=== PATIENT | male | born 2000 | race Two or more races ===

== ENCOUNTER 2021-06-26 06:05 | Inpatient (IN) ==
[2021-06-26] MEDS ORDERED: SODIUM CHLORIDE 0.9% 1000ML 1,000 ML IV ONE ×2 (06:52→07:50)
[2021-06-26] MEDS ORDERED: ONDANSETRON INJ 2 MG/ML 2 ML VIAL IV STA (06:52)
[2021-06-26] MEDS ORDERED: MoRPHine SULFATE 4 MG/ML 1 ML CARP\\VIAL IV STA (06:52)
--- NOTE | 2021-06-26 06:58 | Emergency Department Note ---
Impression & Plan Pancreatitis ED Provider Note Name: KENTON CABALLERO Age: 21 Sex: M Arrives Via: Walk-In Informant: Patient ED Provider: Salomón Kumar MD Chief Complaint: abdominal pain Impression: Pancreatitis Medical Decision Makin yr old male who is a pleasant healthy [employer] Student without PMH arrives for evaluation of epigastric pain starting overnight after eating chicken tacos last night. No ETOH, trauma, drugs, nor nsaid use. Labs with Lipase 12k and mild renal insufficiency. Given 2 L IV fluids, narcotics for pain control and CT obtained after discussing risks contrast/radiation. This shows pancreatitis with trace fluid. No evidence active hemorrhage. He is hemodynamically stable, not septic appearing and is now comfortable post IV narcotics. Hospitalist consulted for further management. I reviewed with patient's father at bedside over the phone with patient. Prior Medical Record and Triage/Nursing Notes reviewed by Me Differentials:Appendicitis, infections,UTI, obstruction, mesenteric ischemia, aortic pathology, inflammatory bowel disease, renal colic, PUD, pancreatitis, biliary pathology, hernia, volvulus, constipation, as well as other pathologies. Vital Signs: reviewed and remarkable for no significant abnormalities Interventions: saline lock, nss bolus 2 L IV, morphine 4mg iv, zofran 4mg iv, dilaudid 1mg iv Labs:Reviewed and remarkable for elevated cr, ++lipase Imaging:See Below Consults:Dr Clemente GURROLA Hospitalist Plan: Disposition:Hospitalization. Condition: Good History of Present Illness:21 yr old male arrives for evaluation of abdominal pain. Patient notes that he awoke in the middle of the night with abdominal pain. Upper umbilical area. Sharp & cramping in nature. Worse with movement, better with saying still. No associated symptoms. No radiation of pain. No medications taken for this. He did eat chicken in a taco last night that none of his friends had. No other sick contacts. No trauma, injuries, falls. No supplement use. No history of similar. No abdominal surgeries. Denies nausea, vomiting, chest pain, syncope, back pain, urinary/bowel symptoms, leg swelling, rashes, headache, sore throat, nor other symptoms. ROS: See above HPI for pertinent positives & negatives. A total of 10 systems reviewed and were otherwise negative. Past Medical History:None Past Surgical History:None Family History:Healthy Social History:[employer] Student from [place], no tobacco use Home Medications:None Allergies:NKDA Vitals:Blood Pressure: 139/61, Pulse 79, RR 22, T 3.4C, O2 98% on RA Physical Exam: GENERAL: Patient is uncomfortable appearing and in moderate distress. EYES: No scleral icterus, unremarkable pupils. ENT: Mucous membranes moist, no nasal congestion. NECK: No masses appreciated, nomeningismus, trachea is midline. RESPIRATORY: No dyspnea. Clear to auscultation and equal bilaterally. No wheeze, no rhonchi. CARDIOVASCULAR: Regular rate and rhythm.No murmurs, rubs, gallops appreciated. GASTROINTESTINAL: TTP over upper umbilical/epigastric. Abdomen soft.Bowel sounds positive.No masses appreciated. BACK: No midline tenderness, no CVA tenderness EXTREMITIES: Normal motion all extremities, no cyanosis, no edema. NEUROLOGIC: Alert and oriented, no acute motor or sensory deficits, no focal weakness, cranial nerves grossly intact. SKIN: No rash, no jaundice, no diaphoresis. PSYCH: Appropriate GCS: 15 ED Course: Times/Reassessments: Stable, much improved and breathing comfortably Salomón Kumar MD Past Med/Surg History Social History Smoking Status: Never smoker Hx Alcohol Use: Yes Alcohol type: beer Hx Substance Use: No Preferred Language: Frisian Communication Ability: Effective Director Multimedia Required: No Beliefs That Will Affect Care: None Current Living Situation: Other Current Living Situation Comment: FRIENDS Other Information That Helps Us Care for You: No Feels Safe at Home: Yes Safety Concerns: Feels Safe At This Time Assistive Devices: Glasses Allergies Allergies Allergy/AdvReac Type Severity Reaction Status Date / Time No Known Allergies Allergy Unverified 06/26/21 08:07 Home Meds Home Medications Medication Instructions Recorded Confirmed levothyroxine 75 mcg capsule 75 mcg PO DAILY 06/26/21 06/26/21 Results & Data (ED) Vital Signs Vital Signs - 24 hr 06/26/21 06:10 06/26/21 06:23 06/26/21 08:35 Temperature 36.4 C L Temperature Source Temporal Artery Scan Pulse Rate 79 Pulse Rate [Apical] 60 Respiratory Rate 24 22 18 Respiratory Effort / Characteristics Spontaneous Non-Labored Respiratory Depth Normal Blood Pressure 122/77 Blood Pressure [Right Arm] 139/61 141/83 H Blood Pressure Mean 92 Blood Pressure Mean [Right Arm] 87 102 Blood Pressure Position Sitting Blood Pressure Position [Right Arm] Sitting Pulse Oximetry 100 98 98 Oxygen Delivery Method Room Air Room Air Room Air Sepsis Recent Fever Within 48 Hours No Sepsis New/Unexplained Change in Mental Status N/A Sepsis Action Taken by Nursing No Action Required Laboratory Data Result diagrams: 06/26/21 07:00 06/26/21 07:00 Lab Results 06/26/21 06/26/21 06/26/21 Range/Units 07:00 07:00 07:10 WBC 12.35 H (4.8-10.8) K/uL RBC 5.48 (4.7-6.1) M/uL Hgb 16.5 (14.0-18.0) g/dL Hct 45.4 (42-52) % MCV 82.8 (80-100) fL MCH 30.1 (25-34) pg MCHC 36.3 H (32-36) g/dL RDW Std Deviation 37.0 (36.4-46.3) fL RDW Coeff of Kurt 12.2 (11.5-14.5) % Plt Count 197 (130-400) K/uL MPV 9.0 (7.4-10.4) fL Immature Gran % (Auto) 0.2 % Neut % (Auto) 71.2 % Lymph % (Auto) 21.2 % [place] % (Auto) 6.7 % Eos % (Auto) 0.4 % Baso % (Auto) 0.3 % Neut # (Auto) 8.79 H (1.4-6.5) K/uL Lymph # (Auto) 2.62 (1.2-3.4) K/uL [place] # (Auto) 0.83 H (0.11-0.59) K/uL Eos # (Auto) 0.05 (0-0.5) K/uL Baso # (Auto) 0.04 (0-0.2) K/uL Immature Gran # (Auto) 0.02 (0.00-0.02) K/uL Sodium 138 (136-145) mmol/L Potassium 3.2 L (3.5-5.1) mmol/L Chloride 105 (98-107) mmol/L Carbon Dioxide 24 (21-32) mmol/L Anion Gap 9.0 (3-11) BUN 14 (7-18) mg/dl Creatinine 1.54 H (0.6-1.4) mg/dl Est Cr Clr Drug Dosing 78.7 ml/min Est GFR ( Amer) 74.2 ml/min Est GFR (Non-Af Amer) 64.0 ml/min BUN/Creatinine Ratio 9.2 L (10-20) Glucose 142 H (70-99) mg/dl Calcium 9.1 (8.5-10.1) mg/dl Total Bilirubin 0.7 (0.2-1) mg/dl Direct Bilirubin 0.2 (0-0.2) mg/dl AST 16 (15-37) U/L ALT 20 (12-78) U/L Alkaline Phosphatase 68 (45-117) U/L Total Protein 7.1 (6.4-8.2) gm/dl Albumin 3.8 (3.4-5.0) gm/dl Lipase 80661 H (73-393) U/L Urine Color Yellow Urine Appearance Clear (Clear) Urine pH 7.5 (4.5-7.5) Ur Specific [place] 1.023 (1.000-1.030) Urine Protein Negative (Negative) Urine Glucose (UA) Negative (Negative) Urine Ketones Trace H (Negative) Urine Blood Negative (Negative) Urine Nitrite Negative (Negative) Urine Bilirubin Negative (Negative) Urine Urobilinogen Negative (Negative) Ur Leukocyte Esterase Negative (Negative) COVID-19 Eval Order SARS-CoV-2 (PCR) (Negative) 06/26/21 06/26/21 Range/Units 08:20 08:20 WBC (4.8-10.8) K/uL RBC (4.7-6.1) M/uL Hgb (14.0-18.0) g/dL Hct (42-52) % MCV (80-100) fL MCH (25-34) pg MCHC (32-36) g/dL RDW Std Deviation (36.4-46.3) fL RDW Coeff of Kurt (11.5-14.5) % Plt Count (130-400) K/uL MPV (7.4-10.4) fL Immature Gran % (Auto) % Neut % (Auto) % Lymph % (Auto) % [place] % (Auto) % Eos % (Auto) % Baso % (Auto) % Neut # (Auto) (1.4-6.5) K/uL Lymph # (Auto) (1.2-3.4) K/uL [place] # (Auto) (0.11-0.59) K/uL Eos # (Auto) (0-0.5) K/uL Baso # (Auto) (0-0.2) K/uL Immature Gran # (Auto) (0.00-0.02) K/uL Sodium (136-145) mmol/L Potassium (3.5-5.1) mmol/L Chloride (98-107) mmol/L Carbon Dioxide (21-32) mmol/L Anion Gap (3-11) BUN (7-18) mg/dl Creatinine (0.6-1.4) mg/dl Est Cr Clr Drug Dosing ml/min Est GFR ( Amer) ml/min Est GFR (Non-Af Amer) ml/min BUN/Creatinine Ratio (10-20) Glucose (70-99) mg/dl Calcium (8.5-10.1) mg/dl Total Bilirubin (0.2-1) mg/dl Direct Bilirubin (0-0.2) mg/dl AST (15-37) U/L ALT (12-78) U/L Alkaline Phosphatase (45-117) U/L Total Protein (6.4-8.2) gm/dl Albumin (3.4-5.0) gm/dl Lipase (73-393) U/L Urine Color Urine Appearance (Clear) Urine pH (4.5-7.5) Ur Specific [place] (1.000-1.030) Urine Protein (Negative) Urine Glucose (UA) (Negative) Urine Ketones (Negative) Urine Blood (Negative) Urine Nitrite (Negative) Urine Bilirubin (Negative) Urine Urobilinogen (Negative) Ur Leukocyte Esterase (Negative) COVID-19 Eval Order Covid19 at [facility] SARS-CoV-2 (PCR) NEGATIVE (Negative) Administered Medications Lactated Ringer's (Lr) 1,000 mls @ 200 mls/hr IV .Q5H ELIZABET Stop: 07/26/21 11:57 Last Admin: 06/26/21 12:12 Dose: 200 mls/hr Documented by: [id number] Discontinued Medications Hydromorphone HCl (Hydromorphone Inj 1 Mg/Ml Syringe) 1 mg IV NOW STA Stop: 06/26/21 07:58 Last Admin: 06/26/21 08:28 Dose: 1 mg Documented by: [id number] Hydromorphone HCl (Hydromorphone Inj 1 Mg/Ml Syringe) 1 mg IV Q15M PRN PRN Reason: Pain Stop: 07/10/21 07:56 Last Admin: 06/26/21 09:57 Dose: 1 mg Documented by: [id number] Sodium Chloride (Nss 1000ml) 1,000 mls @ 999 mls/hr IV .Q1H1M ONE Stop: 06/26/21 07:52 Last Infusion: 06/26/21 08:30 Dose: 0 mls/hr Documented by: [id number] Admin: 06/26/21 07:16 Dose: 999 mls/hr Documented by: [id number] Sodium Chloride (Nss 1000ml) 1,000 mls @ 999 mls/hr IV .Q1H1M ONE Stop: 06/26/21 08:50 Last Infusion: 06/26/21 10:22 Dose: 0 mls/hr Documented by: [id number] Admin: 06/26/21 08:30 Dose: 999 mls/hr Documented by: [id number] Ioversol (Optiray 320 100ml) 91 ml IV ONCE ONE Stop: 06/26/21 08:26 Last Admin: 06/26/21 08:18 Dose: 91 ml Documented by: [id number] Morphine Sulfate (Morphine Sulfate 4 Mg/Ml 1 Ml Carp\Vial) 4 mg IV NOW STA Stop: 06/26/21 06:53 Last Admin: 06/26/21 07:18 Dose: 4 mg Documented by: [id number] Ondansetron HCl (Ondansetron Inj 2 Mg/Ml 2 Ml Vial) 4 mg IV NOW STA Stop: 06/26/21 06:53 Last Admin: 06/26/21 07:18 Dose: 4 mg Documented by: [id number] Imaging Data Radiologist's Impression: Abdomen/Pelvis CT 06/26/21 07:50 CT SCAN OF THE ABDOMEN AND PELVIS WITH IV CONTRAST CLINICAL HISTORY: Generalized abdominal pain. Clinical concern for pancreatitis. COMPARISON STUDY: No priors. TECHNIQUE: Following the IV administration of 91 cc of Optiray 320, CT scan of the abdomen and pelvis is performed from the lung bases to the proximal femora. Images are reviewed in the axial, sagittal, and coronal planes. IV contrast was administered without complication. A dose lowering technique was utilized adhering to the principles of ALARA. CT DOSE: 297.26 mGy.cm FINDINGS: Lung bases: The heart is normal in size and without pericardial effusion. The lung bases are clear. Liver: The contrast-enhanced liver is normal in size, contour, and attenuation. There is no intrahepatic biliary ductal dilatation. The hepatic veins and portal veins are patent. Gallbladder: Contracted. Spleen: Normal in size and attenuation. Pancreas: There is inflammatory stranding and fluid identified around the distal pancreatic body and tail. Fluid is seen tracking inferiorly in the left paracolic gutter. The pancreas enhances homogeneously. No organized peripancreatic fluid collection is identified. The duct is normal in caliber. The splenic vein is patent. Adrenal glands: Unremarkable. Kidneys: The contrast enhanced kidneys are normal in size and without hydronephrosis. The kidneys enhance symmetrically. Abdominal vasculature: The abdominal aorta is normal in course and caliber. Bowel: There is no bowel obstruction. The appendix is well-visualized and normal. Peritoneum: There is no intraperitoneal free air. A small to moderate amount of free fluid is seen tracking along the left paracolic gutter as above. Lymphadenopathy: None. Pelvic viscera: The bladder is distended but otherwise normal in appearance. The prostate and seminal vesicles are normal as visualized. There is trace free fluid in the pelvis. Skeletal structures: No lytic or blastic lesions are seen. IMPRESSION: 1. There is infiltration and fluid identified around the distal pancreatic body and tail. This could be seen with acute pancreatitis as clinically suspected. Correlation with clinical findings and serum amylase/lipase levels. 2. The pancreas enhances homogeneously and there is no organized peripancreatic fluid collection identified. 3. A small to moderate volume of fluid is seen tracking inferiorly in the left paracolic gutter. There is also trace free fluid in the pelvis. 4. Additional findings as above. ACT 112: Negative or not required by law. Electronically signed by: Petr Cormier M.D. 06/26/2021 8:29 AM Discharge Plan Visit Data Chief Complaint: Abdominal Pain Stated Complaint: DULL STOMACH PAIN ED Provider: Salomón Kumar Discharge Problem: Pancreatitis Patient Disposition: Admitted As Inpatient Discharge Instructions Interventions: ED Discharge Assessment Last Done: 06/26/21 11:36
[2021-06-26 07:24] LABS: Basophils # (auto) 0.04 K/uL (0-0.2); Basophils % (auto) 0.3 %; Eosinophils # (auto) 0.05 K/uL (0-0.5); Eosinophils % (auto) 0.4 %; Hematocrit (blood only) 45.4 % (42-52); Hemoglobin 16.5 g/dL (14.0-18.0); Immature Granulocytes # (auto) 0.02 K/uL (0.00-0.02); Immature Granulocytes % (auto) 0.2 %; Lymphocytes # (auto) 2.62 K/uL (1.2-3.4); Lymphocytes % (auto) 21.2 %; Mean Corpuscular Hemoglobin 30.1 pg (25-34); Mean Corpuscular Hgb Conc 36.3 g/dL (32-36); Mean Corpuscular Volume 82.8 fL (80-100); Monocytes # (auto) 0.83 K/uL (0.11-0.59); Monocytes % (auto) 6.7 %; Neutrophils # (auto) 8.79 K/uL (1.4-6.5); Neutrophils % (auto) 71.2 %; Platelet Count 197 K/uL (130-400); RDW Coefficient of Variation 12.2 % (11.5-14.5); Red Blood Count 5.48 M/uL (4.7-6.1); White Blood Count 12.35 K/uL (4.8-10.8)
[2021-06-26 07:42] LABS: Albumin Level 3.8 gm/dl (3.4-5.0); BUN Creatinine Ratio 9.2 (10-20); Bilirubin Direct 0.2 mg/dl (0-0.2); Calcium 9.1 mg/dl (8.5-10.1); Creatinine Clr Calc Pharmacy 78.7 ml/min; Est GFR (African American) 74.2 ml/min; Potassium 3.2 mmol/L (3.5-5.1)
[2021-06-26 07:44] LABS: Bilirubin,Total 0.7 mg/dl (0.2-1); Total Protein 7.1 gm/dl (6.4-8.2)
[2021-06-26] MEDS ORDERED: HYDROmorphone INJ 1 MG/ML SYRINGE IV PRN (07:57)
[2021-06-26] MEDS ORDERED: HYDROmorphone INJ 1 MG/ML SYRINGE IV STA (07:57)
[2021-06-26] MEDS ORDERED: OPTIRAY 320 100ml IV ONE (08:25)
--- NOTE | 2021-06-26 08:31 | CT Scan Report ---
CT SCAN OF THE ABDOMEN AND PELVIS WITH IV CONTRAST CLINICAL HISTORY: Generalized abdominal pain. Clinical concern for pancreatitis. COMPARISON STUDY: No priors. TECHNIQUE: Following the IV administration of 91 cc of Optiray 320, CT scan of the abdomen and pelvi s is performed from the lung bases to the proximal femora. Images are reviewed in the axial, sagittal , and coronal planes. IV contrast was administered without complication. A dose lowering technique wa s utilized adhering to the principles of ALARA. CT DOSE: 297.26 mGy.cm FINDINGS: Lung bases: The heart is normal in size and without pericardial effusion. The lung bases are clear. Liver: The contrast-enhanced liver is normal in size, contour, and attenuation. There is no intrahepa tic biliary ductal dilatation. The hepatic veins and portal veins are patent. Gallbladder: Contracted. Spleen: Normal in size and attenuation. Pancreas: There is inflammatory stranding and fluid identified around the distal pancreatic body and tail. Fluid is seen tracking inferiorly in the left paracolic gutter. The pancreas enhances homogeneo usly. No organized peripancreatic fluid collection is identified. The duct is normal in caliber. The splenic vein is patent. Adrenal glands: Unremarkable. Kidneys: The contrast enhanced kidneys are normal in size and without hydronephrosis. The kidneys enh ance symmetrically. Abdominal vasculature: The abdominal aorta is normal in course and caliber. Bowel: There is no bowel obstruction. The appendix is well-visualized and normal. Peritoneum: There is no intraperitoneal free air. A small to moderate amount of free fluid is seen tr acking along the left paracolic gutter as above. Lymphadenopathy: None. Pelvic viscera: The bladder is distended but otherwise normal in appearance. The prostate and seminal vesicles are normal as visualized. There is trace free fluid in the pelvis. Skeletal structures: No lytic or blastic lesions are seen. IMPRESSION: 1. There is infiltration and fluid identified around the distal pancreatic body and tail. This could be seen with acute pancreatitis as clinically suspected. Correlation with clinical findings and serum amylase/lipase levels. 2. The pancreas enhances homogeneously and there is no organized peripancreatic fluid collection iden tified. 3. A small to moderate volume of fluid is seen tracking inferiorly in the left paracolic gutter. Ther e is also trace free fluid in the pelvis. 4. Additional findings as above. ACT 112: Negative or not required by law. Electronically signed by: Petr Cormier M.D. 06/26/2021 8:29 AM
[2021-06-26 09:44] LABS: Appearance Urine Clear (Clear); Bilirubin Urine Negative (Negative); Blood Urine Negative (Negative); Color Urine Yellow; Glucose Urine UA Negative (Negative); Ketones Urine Trace (Negative); Leukocyte Esterase Urine Negative (Negative); Nitrite Urine Negative (Negative); Protein Urine Negative (Negative); Specific Gravity Urine 1.023 (1.000-1.030); Urobilinogen Urine Negative (Negative); pH Urine 7.5 (4.5-7.5)
[2021-06-26] MEDS ORDERED: ONDANSETRON INJ 2 MG/ML 2 ML VIAL IV PRN (11:58)
[2021-06-26] MEDS: LACTATED RINGER'S 1,000 ML IV SCH ×3 (12:12→22:39)
--- NOTE | 2021-06-26 13:44 | Ultrasound Report ---
ABDOMINAL ULTRASOUND, RIGHT UPPER QUADRANT HISTORY: pancreatitis, evaluate gall bladder and CBD. COMPARISON: CT of the abdomen and pelvis June 26, 2021. FINDINGS: Liver morphology is normal. No hepatic lesions are identified. There is no biliary ductal d ilatation. The common bile duct measures 3 mm in caliber. The gallbladder is normal. There are no gal lstones. The pancreas is obscured on this examination due to overlying bowel gas. There is no right h ydronephrosis. IMPRESSION: 1. No gallstones or biliary ductal dilatation. 2. Obscured pancreas due to overlying bowel gas. ACT 112: Negative or not required by law. Electronically signed by: Eduardo Singh M.D. 06/26/2021 1:43 PM
[2021-06-26] MEDS: HYDROmorphone INJ 1 MG/ML SYRINGE IV PRN ×4 (14:12→23:28)
--- NOTE | 2021-06-26 20:17 | History & Physical Report ---
Date of Service June 26, 2021 Assessment & Plan (1) Pancreatitis: Plan: acute pancreatitis, unclear etiology no alcohol abuse or recent binge episode normal gall bladder no obvious medication that would cause this aggressive hydration with LR @ 200mL/hr Dilaudid 1mg IV q3 PRN for pain strict NPO, can have some ice chips check triglycerides in the morning repeat CMP, lipase and CBC in the morning Admission and Anticipated Discharge Date Admission Date: June 26, 2021 History of Present Illness Chief Complaint: I have severe abdominal pain Primary Care Provider: [facility] 21 yo male with no medical history, currently and undergraduate student at [employer], presented this morning to the ED c/o severe abdominal pain. He said that the pain started at 5am. He woke up with the pain, he has never experienced pain like this before, the pain did not radiate to his back or improve with changing positions. The pain was in the epigastric region. He did not have a fever, nausea/vomiting, diarrhea, chest pain or shortness of breath. He did not have an appetite. The pain was severe, 8 out of 10. He went to the ED when the pain did not subside. He was found to have a lipase of 12,[address] of the abdomen/pelvis showed pancreatitis in the tail of the pancreas. He was given Dilaudid for pain control and IV fluids. The patient admits to occasional, social alcohol consumption but denies daily drinking and denies any recent binge drinking episodes. He does not take drugs, does not smoke cigarettes or vape. No significant family history. Allergies Allergy/AdvReac Type Severity Reaction Status Date / Time No Known Allergies Allergy Unverified 06/26/21 08:07 Home Medications Medication Instructions Recorded Confirmed Type levothyroxine 75 mcg capsule 75 mcg PO DAILY 06/26/21 06/26/21 History Past Med/Surg History Medical History (Updated 06/26/21 @ 20:21 by Alistair Cornejo DO) Hypothyroidism Family History (Updated 06/26/21 @ 20:22 by Alistair Cornejo DO) Other No significant family history Social History Smoking Status: Never smoker Hx Alcohol Use: Yes Alcohol type: beer Hx Substance Use: No Preferred Language: Malay Communication Ability: Effective [employer] Consultant Required: No Beliefs That Will Affect Care: None Current Living Situation: Other Current Living Situation Comment: FRIENDS Other Information That Helps Us Care for You: No Feels Safe at Home: Yes Safety Concerns: Feels Safe At This Time Assistive Devices: None Review of Systems Review of Systems: All systems reviewed & are unremarkable except as noted in HPI & below Gastrointestinal: + abdominal pain (severe, epigastric), + nausea, + vomiting, + constipation and + diarrhea/loose stools Physical Exam Physical Exam: General: well developed, well nourished, no acute distress, comfortable Neck: supple, trachea midline, normal thyroid Lungs: clear to auscultation bilaterally, normal respiratory effort, no accessory muscle use, no distress Heart: regular S1 and S2, no murmur, peripheral pulses normal, capillary refill normal, no edema Abdomen: soft, TTP in epigastric region, no rebound, no rigidity, ND, + BS, no hepatomegaly, normal to percussion Extremities: normal in appearance, no cyanosis, no petechiae, strength is 5/5 bilaterally Neuro: awake, cooperative, moves all extremities, no focal motor deficits, CN II-XII intact, sensation in extremities intact, normal speech Skin: warm, dry, no rash, normal turgor Psych: Awake, alert oriented x 3, euthymic affect Results & Data Results & Data ([facility]) Vital Signs (Past 12 Hours) Vital Signs Temp Pulse Pulse Resp BP BP Pulse Ox 06/26/21 11:52 36.2 C L 56 L 18 119/72 97 06/26/21 11:36 80 18 134/76 99 06/26/21 10:56 78 18 132/82 99 06/26/21 08:35 60 18 141/83 H 98 Laboratory Results Laboratory Results - last 24 hr 06/26/21 06/26/21 06/26/21 07:00 07:00 07:10 WBC 12.35 H RBC 5.48 Hgb 16.5 Hct 45.4 MCV 82.8 MCH 30.1 MCHC 36.3 H RDW Std Deviation 37.0 RDW Coeff of Kurt 12.2 Plt Count 197 MPV 9.0 Immature Gran % (Auto) 0.2 Neut % (Auto) 71.2 Lymph % (Auto) 21.2 [place] % (Auto) 6.7 Eos % (Auto) 0.4 Baso % (Auto) 0.3 Neut # (Auto) 8.79 H Lymph # (Auto) 2.62 [place] # (Auto) 0.83 H Eos # (Auto) 0.05 Baso # (Auto) 0.04 Immature Gran # (Auto) 0.02 Sodium 138 Potassium 3.2 L Chloride 105 Carbon Dioxide 24 Anion Gap 9.0 BUN 14 Creatinine 1.54 H Est Cr Clr Drug Dosing 78.7 Est GFR ( Amer) 74.2 Est GFR (Non-Af Amer) 64.0 BUN/Creatinine Ratio 9.2 L Glucose 142 H Calcium 9.1 Total Bilirubin 0.7 Direct Bilirubin 0.2 AST 16 ALT 20 Alkaline Phosphatase 68 Total Protein 7.1 Albumin 3.8 Lipase 59492 H Urine Color Yellow Urine Appearance Clear Urine pH 7.5 Ur Specific [place] 1.023 Urine Protein Negative Urine Glucose (UA) Negative Urine Ketones Trace H Urine Blood Negative Urine Nitrite Negative Urine Bilirubin Negative Urine Urobilinogen Negative Ur Leukocyte Esterase Negative COVID-19 Eval Order SARS-CoV-2 (PCR) 06/26/21 06/26/21 08:20 08:20 WBC RBC Hgb Hct MCV MCH MCHC RDW Std Deviation RDW Coeff of Kurt Plt Count MPV Immature Gran % (Auto) Neut % (Auto) Lymph % (Auto) [place] % (Auto) Eos % (Auto) Baso % (Auto) Neut # (Auto) Lymph # (Auto) [place] # (Auto) Eos # (Auto) Baso # (Auto) Immature Gran # (Auto) Sodium Potassium Chloride Carbon Dioxide Anion Gap BUN Creatinine Est Cr Clr Drug Dosing Est GFR ( Amer) Est GFR (Non-Af Amer) BUN/Creatinine Ratio Glucose Calcium Total Bilirubin Direct Bilirubin AST ALT Alkaline Phosphatase Total Protein Albumin Lipase Urine Color Urine Appearance Urine pH Ur Specific [place] Urine Protein Urine Glucose (UA) Urine Ketones Urine Blood Urine Nitrite Urine Bilirubin Urine Urobilinogen Ur Leukocyte Esterase COVID-19 Eval Order Covid19 at [facility] SARS-CoV-2 (PCR) NEGATIVE Diagnostic Findings CT abdomen/pelvis: acute pancreatitis Abdominal US: normal gall bladder, no stones, normal common bile duct Code Status & VTE Plan VTE Prophylaxis Plan VTE Prophylaxis will be ordered: No PG Care Time/CCT Total # of Minutes Spent Total Time Spent with Patient: Total time spent is greater than 50% in coordination of care (as documented) at patient's floor/unit and/or counseling patient: Coding Level of Care Code INT OBSERVATION CARE 50M LVL 2 Diagnoses Pancreatitis K85.90 Acute pancreatitis complication: no infection or necrosis Chronicity: acute Pancreatitis type: unspecified pancreatitis type (1) Pancreatitis Acute pancreatitis complication: no infection or necrosis Chronicity: acute Pancreatitis type: unspecified pancreatitis type Qualified Code(s): K85.90 - Acute pancreatitis without necrosis or infection, unspecified
[2021-06-27] MEDS: HYDROmorphone INJ 1 MG/ML SYRINGE IV PRN ×7 (02:46→23:17)
[2021-06-27] MEDS: LACTATED RINGER'S 1,000 ML IV SCH ×4 (03:31→19:33)
[2021-06-27 07:07] LABS: Basophils # (auto) 0.01 K/uL (0-0.2); Basophils % (auto) 0.1 %; Eosinophils # (auto) 0.01 K/uL (0-0.5); Eosinophils % (auto) 0.1 %; Hematocrit (blood only) 44.9 % (42-52); Hemoglobin 16.1 g/dL (14.0-18.0); Immature Granulocytes # (auto) 0.03 K/uL (0.00-0.02); Immature Granulocytes % (auto) 0.3 %; Lymphocytes # (auto) 1.07 K/uL (1.2-3.4); Lymphocytes % (auto) 10.3 %; Mean Corpuscular Hemoglobin 30.8 pg (25-34); Mean Corpuscular Hgb Conc 35.9 g/dL (32-36); Mean Platelet Volume 9.7 fL (7.4-10.4); Monocytes # (auto) 0.97 K/uL (0.11-0.59); Monocytes % (auto) 9.3 %; Neutrophils # (auto) 8.31 K/uL (1.4-6.5); Neutrophils % (auto) 79.9 %; Platelet Count 161 K/uL (130-400); RDW Coefficient of Variation 12.2 % (11.5-14.5); RDW Standard Deviation 38.8 fL (36.4-46.3); Red Blood Count 5.22 M/uL (4.7-6.1)
[2021-06-27 07:48] LABS: Albumin Level 3.3 gm/dl (3.4-5.0); BUN Creatinine Ratio 4.8 (10-20); Creatinine Clr Calc Pharmacy 118.8 ml/min; Est GFR (African American) 122.1 ml/min; Est GFR (Non-African American) 105.3 ml/min; Potassium 3.5 mmol/L (3.5-5.1)
[2021-06-27 08:02] LABS: Albumin Globulin Ratio 1.1 (0.9-2); Bilirubin,Total 0.6 mg/dl (0.2-1); Globulin 3.1 gm/dl (2.5-4.0); Total Protein 6.4 gm/dl (6.4-8.2)
--- NOTE | 2021-06-27 15:07 | Hospitalist Progress Note ---
Date of Service June 27, 2021 Assessment & Plan (1) Pancreatitis: Plan: acute pancreatitis, unclear etiology no alcohol abuse or recent binge episode normal gall bladder no obvious medication that would cause this (checked adverse effects for Synthroid) normal triglycerides at 100 continue aggressive hydration with LR @ 200mL/hr Dilaudid 1mg IV q3 PRN for pain tried some liquids but caused more pain, will hold off BUN going down which is good, Hct stable, WBC normal check labs again tomorrow Admission and Anticipated Discharge Date Admission Date: June 26, 2021 Subjective patient doing a little better, less pain gave him some clears, made the pain worse, will hold on further liquids lipase down to 1000 from 12,000, WBC normal, BUN going down and Hct stable will change to full admission updated his parents at the bedside Review of Systems Review of Systems: All systems reviewed & are unremarkable except as noted in Subjective Gastrointestinal: + abdominal pain (epigastric, worse with drinking fluids) Physical Exam Physical Exam: General: well developed, well nourished, no acute distress, comfortable Neck: supple, trachea midline, normal thyroid Lungs: clear to auscultation bilaterally, normal respiratory effort, no accessory muscle use, no distress Heart: regular S1 and S2, no murmur, peripheral pulses normal, capillary refill normal, no edema Abdomen: soft, TTP in epigastric region, no rebound, no rigidity, ND, + BS, no hepatomegaly, normal to percussion Extremities: normal in appearance, no cyanosis, no petechiae, strength is 5/5 bilaterally Neuro: awake, cooperative, moves all extremities, no focal motor deficits, CN II-XII intact, sensation in extremities intact, normal speech Skin: warm, dry, no rash, normal turgor Psych: Awake, alert oriented x 3, euthymic affect Results & Data Results & Data ([facility]) Vital Signs (Past 12 Hours) Vital Signs Temp Pulse Resp BP Pulse Ox 06/27/21 07:31 37.1 C 73 16 119/72 95 Laboratory Results Laboratory Results - last 24 hr 06/27/21 06/27/21 06:30 06:30 WBC 10.40 RBC 5.22 Hgb 16.1 Hct 44.9 MCV 86.0 MCH 30.8 MCHC 35.9 RDW Std Deviation 38.8 RDW Coeff of Kurt 12.2 Plt Count 161 MPV 9.7 Immature Gran % (Auto) 0.3 Neut % (Auto) 79.9 Lymph % (Auto) 10.3 Griggs % (Auto) 9.3 Eos % (Auto) 0.1 Baso % (Auto) 0.1 Neut # (Auto) 8.31 H Lymph # (Auto) 1.07 L Griggs # (Auto) 0.97 H Eos # (Auto) 0.01 Baso # (Auto) 0.01 Immature Gran # (Auto) 0.03 H Sodium 135 L Potassium 3.5 Chloride 102 Carbon Dioxide 27 Anion Gap 6.0 BUN 5 L D Creatinine 1.02 Est Cr Clr Drug Dosing 118.8 Est GFR ( Amer) 122.1 Est GFR (Non-Af Amer) 105.3 BUN/Creatinine Ratio 4.8 L Glucose 110 H Calcium 9.0 Total Bilirubin 0.6 AST 10 L ALT 15 Alkaline Phosphatase 62 Total Protein 6.4 Albumin 3.3 L Globulin 3.1 Albumin/Globulin Ratio 1.1 Triglycerides 112 Lipase 1187 H Medications Administered Current Inpatient Medications Hydromorphone HCl (Hydromorphone Inj 1 Mg/Ml Syringe) 1 mg IV Q3H PRN PRN Reason: Pain Stop: 07/10/21 11:57 Last Admin: 06/27/21 13:36 Dose: 1 mg Documented by: Lactated Ringer's (Lr) 1,000 mls @ 200 mls/hr IV .Q5H ELIZABET Stop: 07/26/21 11:57 Last Admin: 06/27/21 13:51 Dose: 200 mls/hr Documented by: Ondansetron HCl (Ondansetron Inj 2 Mg/Ml 2 Ml Vial) 4 mg IV Q6H PRN PRN Reason: Nausea Stop: 07/26/21 11:57 PG Care Time/CCT Total # of Minutes Spent Total Time Spent with Patient: Total time spent is greater than 50% in coordination of care (as documented) at patient's floor/unit and/or counseling patient: Coding Level of Care Code 35836 Subseq Hosp Care Lvl 2 Diagnoses Pancreatitis K85.90 Acute pancreatitis complication: no infection or necrosis Chronicity: acute Pancreatitis type: unspecified pancreatitis type (1) Pancreatitis Acute pancreatitis complication: no infection or necrosis Chronicity: acute Pancreatitis type: unspecified pancreatitis type Qualified Code(s): K85.90 - Acute pancreatitis without necrosis or infection, unspecified
[2021-06-27] MEDS ORDERED: POLYETHYLENE (MIRALAX) 17 GM PACK PO PRN (22:59)
[2021-06-27] MEDS: ACETAMINOPHEN 325 MG TAB PO PRN (23:12)
[2021-06-28] MEDS: LACTATED RINGER'S 1,000 ML IV SCH ×3 (00:34→13:04)
[2021-06-28] MEDS: HYDROmorphone INJ 1 MG/ML SYRINGE IV PRN ×3 (03:42→22:28)
[2021-06-28 07:12] LABS: Albumin Level 3.1 gm/dl (3.4-5.0); BUN Creatinine Ratio 5.3 (10-20); Calcium 9.1 mg/dl (8.5-10.1); Creatinine Clr Calc Pharmacy 106.3 ml/min; Est GFR (African American) 106.7 ml/min; Est GFR (Non-African American) 92.1 ml/min; Potassium 3.7 mmol/L (3.5-5.1)
[2021-06-28 07:15] LABS: Albumin Globulin Ratio 0.9 (0.9-2); Bilirubin,Total 1.1 mg/dl (0.2-1); Globulin 3.3 gm/dl (2.5-4.0); Total Protein 6.4 gm/dl (6.4-8.2)
--- NOTE | 2021-06-28 11:32 | Hospitalist Progress Note ---
Date of Service June 28, 2021 Assessment & Plan (1) Pancreatitis: Plan: acute pancreatitis, unclear etiology no alcohol abuse or recent binge episode normal gall bladder no obvious medication that would cause this (checked adverse effects for Synthroid) normal triglycerides at 100 continue aggressive hydration with LR, decrease rate to 100cc/hr since he had 2 full days at 200cc/hr Dilaudid 1mg IV q3 PRN for pain tried some liquids but caused more pain, will hold off, still no appetite BUN down compared to admission, Hct stable, WBC normal, Ca normal (not dropping) repeat labs tomorrow, advance diet once he has an appetite and has less pain Admission and Anticipated Discharge Date Admission Date: June 27, 2021 Subjective patient with epigastric pain and very low grade fever overall pain is better, still no appetite at all he is sipping on water but triggers pain had a BM and passing some flatus no dyspnea reviewed labs, lipase down to 800, BUN is 5, Ca is normal, all good signs encouraged him to be patient, pancreatitis can take a few days to resolve Review of Systems Review of Systems: All systems reviewed & are unremarkable except as noted in Subjective Constitutional: + fever Respiratory: no cough and no dyspnea Gastrointestinal: + abdominal pain (epigastric) and + early satiety (no appetite); no nausea, no vomiting, no constipation and no diarrhea/loose stools Physical Exam Physical Exam: General: well developed, well nourished, no acute distress, com fortable Neck: supple, trachea midline, normal thyroid Lungs: clear to auscultation bilaterally, normal respiratory effort, no accessory muscle use, no distress Heart: regular S1 and S2, no murmur, peripheral pulses normal, capillary refill normal, no edema Abdomen: soft, TTP in epigastric region, no rebound, no rigidity, ND, + BS, no hepatomegaly, normal to percussion Extremities: normal in appearance, no cyanosis, no petechiae, strength is 5/5 bilaterally Neuro: awake, cooperative, moves all extremities, no focal motor deficits, CN II-XII intact, sensation in extremities intact, normal speech Skin: warm, dry, no rash, normal turgor Psych: Awake, alert oriented x 3, euthymic affect Results & Data Results & Data ([facility]) Vital Signs (Past 12 Hours) Vital Signs Temp Resp BP Pulse Ox 06/28/21 07:23 37.9 C H 16 117/74 95 06/28/21 05:04 36.9 C Laboratory Results Laboratory Results - last 24 hr 06/28/21 06:02 Sodium 136 Potassium 3.7 Chloride 101 Carbon Dioxide 30 Anion Gap 5.0 BUN 6 L Creatinine 1.14 Est Cr Clr Drug Dosing 106.3 Est GFR ( Amer) 106.7 Est GFR (Non-Af Amer) 92.1 BUN/Creatinine Ratio 5.3 L Glucose 91 Calcium 9.1 Total Bilirubin 1.1 H D AST 17 ALT 19 Alkaline Phosphatase 56 Total Protein 6.4 Albumin 3.1 L Globulin 3.3 Albumin/Globulin Ratio 0.9 Lipase 808 H Medications Administered Current Inpatient Medications Acetaminophen (Acetaminophen 325 Mg Tab) 650 mg PO Q4H PRN PRN Reason: pain/fever Stop: 07/27/21 22:58 Last Admin: 06/27/21 23:12 Dose: 650 mg Documented by: Hydromorphone HCl (Hydromorphone Inj 1 Mg/Ml Syringe) 1 mg IV Q3H PRN PRN Reason: Pain Stop: 07/10/21 11:57 Last Admin: 06/28/21 07:58 Dose: 1 mg Documented by: Lactated Ringer's (Lr) 1,000 mls @ 100 mls/hr IV .Q10H ELIZABET Stop: 07/26/21 11:57 Last Infusion: 06/28/21 08:05 Dose: 100 mls/hr Documented by: Ondansetron HCl (Ondansetron Inj 2 Mg/Ml 2 Ml Vial) 4 mg IV Q6H PRN PRN Reason: Nausea Stop: 07/26/21 11:57 Polyethylene Glycol (Polyethylene (Miralax) 17 Gm Pack) 17 gm PO DAILY PRN PRN Reason: Constipation Stop: 07/27/21 22:58 PG Care Time/CCT Total # of Minutes Spent Total Time Spent with Patient: Total time spent is greater than 50% in coordination of care (as documented) at patient's floor/unit and/or counseling patient: Coding Level of Care Code 09702 Subseq Hosp Care Lvl 2 Diagnoses Pancreatitis K85.90 Acute pancreatitis complication: no infection or necrosis Chronicity: acute Pancreatitis type: unspecified pancreatitis type (1) Pancreatitis Acute pancreatitis complication: no infection or necrosis Chronicity: acute Pancreatitis type: unspecified pancreatitis type Qualified Code(s): K85.90 - Acute pancreatitis without necrosis or infection, unspecified
[2021-06-28] MEDS: ACETAMINOPHEN 325 MG TAB PO PRN (16:29)
[2021-06-29] MEDS: LACTATED RINGER'S 1,000 ML IV SCH ×2 (01:30→10:05)
[2021-06-29 10:17] LABS: Basophils # (auto) 0.02 K/uL (0-0.2); Basophils % (auto) 0.2 %; Eosinophils # (auto) 0.02 K/uL (0-0.5); Eosinophils % (auto) 0.2 %; Hematocrit (blood only) 42.3 % (42-52); Immature Granulocytes # (auto) 0.01 K/uL (0.00-0.02); Immature Granulocytes % (auto) 0.1 %; Lymphocytes % (auto) 17.9 %; Mean Corpuscular Hemoglobin 30.5 pg (25-34); Mean Corpuscular Hgb Conc 35.5 g/dL (32-36); Mean Corpuscular Volume 86.2 fL (80-100); Mean Platelet Volume 9.2 fL (7.4-10.4); Monocytes # (auto) 1.14 K/uL (0.11-0.59); Neutrophils # (auto) 6.61 K/uL (1.4-6.5); Neutrophils % (auto) 69.6 %; Platelet Count 157 K/uL (130-400); RDW Standard Deviation 37.9 fL (36.4-46.3); Red Blood Count 4.91 M/uL (4.7-6.1)
[2021-06-29 10:33] LABS: BUN Creatinine Ratio 5.7 (10-20); Calcium 8.8 mg/dl (8.5-10.1); Creatinine Clr Calc Pharmacy 96.9 ml/min; Est GFR (African American) 95.5 ml/min; Est GFR (Non-African American) 82.4 ml/min; Potassium 3.8 mmol/L (3.5-5.1)
--- NOTE | 2021-06-29 14:43 | Discharge Summary ---
Date of Service June 29, 2021 Admission HPI Per Admitting Provider 21 yo male with no medical history, currently and undergraduate student at [employer], presented this morning to the ED c/o severe abdominal pain. He said that the pain started at 5am. He woke up with the pain, he has never experienced pain like this before, the pain did not radiate to his back or improve with changing positions. The pain was in the epigastric region. He did not have a fever, nausea/vomiting, diarrhea, chest pain or shortness of breath. He did not have an appetite. The pain was severe, 8 out of 10. He went to the ED when the pain did not subside. He was found to have a lipase of 12,[address] of the abdomen/pelvis showed pancreatitis in the tail of the pancreas. He was given Dilaudid for pain control and IV fluids. The patient admits to occasional, social alcohol consumption but denies daily drinking and denies any recent binge drinking episodes. He does not take drugs, does not smoke cigarettes or vape. No significant family history. Principal Diagnosis Acute pancreatitis Discharge Exam General: well developed, well nourished, no acute distress, comfortable Neck: supple, trachea midline, normal thyroid Lungs: clear to auscultation bilaterally, normal respiratory effort, no accessory muscle use, no distress Heart: regular S1 and S2, no murmur, peripheral pulses normal, capillary refill normal, no edema Abdomen: soft, not tender, no rebound, no rigidity, ND, + BS, no hepatomegaly, normal to percussion Extremities: normal in appearance, no cyanosis, no petechiae, strength is 5/5 bilaterally Neuro: awake, cooperative, moves all extremities, no focal motor deficits, CN II-XII intact, sensation in extremities intact, normal speech Skin: warm, dry, no rash, normal turgor Psych: Awake, alert oriented x 3, euthymic affect Discharge Data Allergies Allergy/AdvReac Type Severity Reaction Status Date / Time No Known Allergies Allergy Unverified 06/26/21 08:07 Consultations 06/26/21 08:42 ED Decision to Admit Stat Ordered Studies 06/26/21 07:50 CT abd pelvis IV con only Stat 06/26/21 11:58 US abdomen limited Urgent Hospital Course (1) Pancreatitis: acute pancreatitis, unclear etiology no alcohol abuse or recent binge episode normal gall bladder no obvious medication that would cause this (checked adverse effects for Synthroid) normal triglycerides at 100 treated with aggressive hydration with LR, decrease rate to 100cc/hr since he had 2 full days at 200cc/hr Dilaudid 1mg IV q3 PRN for pain, no medication needed tolerating diet, no pain discharge to home, stay well hydrated, low fat diet no alcohol for 4 weeks, never binge drink in future follow up with [facility] Total Time Total Time Spent Total Time Spent (In Minutes): 32 Total Time Includes: Examination of the Patient, Discharge Planning and Medication Reconciliation Discharge Plan Discharge Items Patient Disposition: Home - Self-Care Reason For Visit: ACUTE PANREATITIS Discharge Diagnosis: Acute pancreatitis, unclear etiology, most likely viral illness Goals: stay well hydrated, advance diet Activity: Resume your previous activity Non-emergency contact: Primary Care Provider Call non-emergency contact if: you have any medication questions and your symptoms worsen Follow-up/Referrals: [place],[facility] [Primary Care Provider] - (one week) Diet: Low Fat Addtl Attending Provider Instructions: Medications: no changes Acute pancreatitis, unclear etiology normal gall bladder, no gall stones no history of heavy alcohol consumption or binge drinking normal triglycerides no medications that could cause pancreatitis COVID negative on admission Sore throat: rapid strep negative, mono screen negative, could be from cough or other viral illness recommendations: stay well hydrated with water and other fluids like Gatorade, Vitamin Water advance diet, avoid fatty foods as they can stimulate pancreas, okay to eat fatty foods after a week abstain from alcohol for 4 weeks, would never binge drink in the future as this could trigger pancreatitis take Tylenol 650mg every 6 hours as needed for fever or pain can resume classes on Thursday if you feel up to it, will give you an excuse through Thursday if you are not up to going to class if you would have future episodes of pancreatitis, you could be referred to gastroenterology specialist, look into rare anatomical cause called pancreatic divisum Pending Studies at Discharge: No Stand-Alone Forms: My [facility] [employer]., Work/School Release, Smoking Cessation Medications and DC Order Prescriptions: Continued levothyroxine 75 mcg Capsule 75 mcg PO DAILY RF: 0 Discharge Orders: Discharge Order (Routine); Ordered 06/29/21 Ordered By: Alistair Carson/Other Patient Handouts: Understanding Pancreatitis Admission Data Admit Date/Time: 06/27/21 15:07 Attending Provider: Alistair Cornejo Admit Provider: Alistair Cornejo Primary Care Provider: [facility] Other Providers: Alistair Cornejo Other Interventions: Discharge Summary Assessment (RN) Last Done: 06/29/21 13:47 Coding Level of Care Code D/C DAY MANAGEMENT >30 MINS Diagnoses Pancreatitis K85.90 Acute pancreatitis complication: no infection or necrosis Chronicity: acute Pancreatitis type: unspecified pancreatitis type
[2021-07-01 10:05] LABS: EBV Nuclear Ag Antibody <18.00 U/mL; EBV Virus Capsid Ag IgG Ab <18.00 U/mL; Epstein Barr Virus Early Ag Ab <9.00 U/mL
== END 2021-06-29 14:55 | disposition home or self-care (01) | DRG 440 ==
LOC: 3N 06:05 → ED 06:05 → 3N 11:36